=== PATIENT | female | born 1985 | race Caucasian/White ===

== ENCOUNTER 2018-02-18 13:57 | Emergency (ER) | payer OTHER, MEDICAID ==
[~2018-02-18] VITALS: Ht 165.1 cm; Wt 70.3 kg
[~2018-02-18 13:57] MED LIST: BENTYL20 MG PO; CIPRO250 M1 PO; NOHOMEMEDICATIONS; NORCO 5-325 TA1 EACH PO; PENICILLIN VK500 M1 PO; PEPTO-BISM262 MG/15 PO; PREDNISONE 20 M20 M1 PO
[2018-02-18] MEDS ORDERED: PENICILLIN VK500 MG PO (15:08)
[2018-02-18] MEDS ORDERED: NORCO 5-325 TA1 EACH PO (15:08)
[2018-02-18] MEDS ORDERED: DIFLUCAN200 MG PO (15:08)
[2018-02-18 15:14] VITALS: BP 111/79
== END 2018-02-18 15:15 | disposition home or self-care (01) ==
LOC: M.ERS 13:57
DX: K02.9 Dental caries, unspecified (principal); F17.210 Nicotine dependence, cigarettes, uncomplicated; Z88.8 Allergy status to other drugs, medicaments and biological substances; Z90.49 Acquired absence of other specified parts of digestive tract